=== PATIENT | male | born 1975 | race American Indian/Alaskan Native ===

== ENCOUNTER 2016-11-30 10:14 | Emergency (ER) | payer OTHER ==
[2016-11-30] MEDS ORDERED: BOOSTRIX IM ONE (10:49)
[2016-11-30] MEDS ORDERED: TORADOL IM ONE (10:50)
--- NOTE | 2016-11-30 11:40 | Emergency Department Report ---
- General Chief Complaint: Extremity Injury, Upper Stated Complaint: RT HAND LAC Time Seen by Provider: 11/30/16 10:48 Source: patient Mode of arrival: Ambulatory Limitations: No Limitations - History of Present Illness Initial Comments: 41 y/o male complain of right hand puncture wound .pt state he was chasing a suspect and attempt to jump over fence and puncture right palm of hand .no bleeding noted from wound.pt complain of pain around site and right thumb pain upon range of motion. -: This morning Extremity Location: Right: Hand (palm) Patient Tetanus UTD: No Context: accidental Associated Symptoms: pain (of right thumb) Treatments Prior to Arrival: bandage - Related Data Previous Rx's Medication Instructions Recorded Last Taken Type Amoxicillin/K Clav Tab [Augmentin 1 tab PO Q12HR #14 tab 11/30/16 Unknown Rx 875 mg] Ibuprofen [Motrin] 800 mg PO Q8HR PRN #30 tablet 11/30/16 Unknown Rx Allergies Allergy/AdvReac Type Severity Reaction Status Date / Time No Known Allergies Allergy Unverified 11/30/16 10:35 ED Review of Systems ROS: Stated complaint: RT HAND LAC Other details as noted in HPI Constitutional: denies: chills, fever Eyes: denies: eye pain, eye discharge, vision change ENT: denies: ear pain, throat pain Respiratory: denies: cough, shortness of breath, wheezing Cardiovascular: denies: chest pain, palpitations Endocrine: no symptoms reported Gastrointestinal: denies: abdominal pain, nausea, diarrhea Genitourinary: denies: urgency, dysuria Musculoskeletal: denies: back pain, joint swelling, arthralgia Skin: other (punture wound to right palm of hand). denies: rash, lesions Neurological: denies: headache, weakness, paresthesias Psychiatric: denies: anxiety, depression Hematological/Lymphatic: denies: easy bleeding, easy bruising ED Past Medical Hx - Past Medical History Previous Medical History?: No - Surgical History Past Surgical History?: No - Social History Smoking Status: Never Smoker Substance Use Type: Alcohol - Medications Home Medications: Home Medications Medication Instructions Recorded Confirmed Last Taken Type Amoxicillin/K Clav Tab [Augmentin 1 tab PO Q12HR #14 tab 11/30/16 Unknown Rx 875 mg] Ibuprofen [Motrin] 800 mg PO Q8HR PRN #30 tablet 11/30/16 Unknown Rx ED Physical Exam - General Limitations: No Limitations General appearance: alert, in no apparent distress - Head Head exam: Present: atraumatic, normocephalic - Eye Eye exam: Present: normal appearance Pupils: Present: normal accommodation - ENT ENT exam: Present: mucous membranes moist - Neck Neck exam: Present: normal inspection, tenderness - Respiratory Respiratory exam: Present: normal lung sounds bilaterally. Absent: respiratory distress, wheezes, rales - Cardiovascular Cardiovascular Exam: Present: regular rate, normal rhythm. Absent: systolic murmur, diastolic murmur, rubs, gallop - GI/Abdominal GI/Abdominal exam: Present: soft, normal bowel sounds - Rectal Rectal exam: Present: deferred - Extremities Exam Extremities exam: Present: normal inspection, full ROM, tenderness (right thumb) . Absent: joint swelling - Back Exam Back exam: Present: normal inspection, full ROM - Neurological Exam Neurological exam: Present: alert, oriented X3 - Psychiatric Psychiatric exam: Present: normal affect, normal mood - Skin Skin exam: Present: warm, dry, normal color, other (punture wound to right palm of hand ). Absent: rash ED Course Vital Signs 11/30/16 11/30/16 10:30 11:09 Temperature 98.9 F Pulse Rate 70 Respiratory 20 18 Rate Blood Pressure 142/87 O2 Sat by Pulse 96 Oximetry ED Medical Decision Making - Medical Decision Making Puncture wound to left palm hand X ray 2v hand : negative pt was given td shot in ed Critical care attestation.: If time is entered above; I have spent that time in minutes in the direct care of this critically ill patient, excluding procedure time. ED Disposition Clinical Impression: Puncture wound Disposition: DISCHARGED TO HOME OR SELFCARE Is pt being admited?: No Does the pt Need Aspirin: No Condition: Stable Instructions: Wound Infection (ED) Additional Instructions: keep wound clean and dry . Prescriptions: Amoxicillin/K Clav Tab [Augmentin 875 mg] 1 tab PO Q12HR #14 tab Ibuprofen [Motrin] 800 mg PO Q8HR PRN #30 tablet PRN Reason: Pain Referrals: TAWANDA ADDISON MD [Primary Care Provider] - 3-5 Days Forms: Work/School Release Form(ED) Time of Disposition: 12:08
[2016-11-30] MEDS ORDERED: TRIPLE ANTIBIOTIC TP ONE (11:44)
--- NOTE | 2016-11-30 11:58 | XRay Report ---
Right hand 3 views: History: Pain and puncture wound. Findings: No fracture, periosteal reaction or lytic lesion. No soft tissue calcification. Impression: No definite bony or articular abnormality.
[2016-11-30 12:17] VITALS: BP 130/80
== END 2016-11-30 12:15 | disposition home or self-care (01) ==
LOC: ED 10:14
DX: S61.432A Puncture wound without foreign body of left hand, initial encounter (principal); X58.XXXA Exposure to other specified factors, initial encounter; Y93.89 Activity, other specified; Y99.8 Other external cause status; Y92.89 Other specified places as the place of occurrence of the external cause
CPT/HCPCS: 73120; 90471; 90715; 96372; 99283; J1885; A6250

== ENCOUNTER 2021-02-13 08:00 | Outpatient (CLI) | payer BC ==
--- NOTE | 2021-02-13 08:45 | Cat Scan Report ---
CT ABDOMEN AND PELVIS WITHOUT CONTRAST INDICATION / CLINICAL INFORMATION: Flank pain. TECHNIQUE: Axial CT images were obtained through the abdomen and pelvis without IV contrast. All CT scans at this location are performed using CT dose reduction for ALARA by means of automated exposure control. COMPARISON: None available. FINDINGS: LOWER CHEST: No significant abnormality LIVER: No significant abnormality GALLBLADDER/BILIARY TREE: Cholecystectomy. PANCREAS: No significant abnormality SPLEEN: No significant abnormality ADRENALS: No significant abnormality KIDNEYS / URETER/BLADDER: 5 mm stone at the right UVJ or just inside the bladder. However, there is n o evidence of hydroureteronephrosis or inflammatory stranding of the ureters/renal collecting system. No additional renal or ureteral calculus is identified. Bladder is partially decompressed, though ot herwise unremarkable. REPRODUCTIVE ORGANS: No significant abnormality STOMACH / SMALL BOWEL: Stomach and small bowel are normal in caliber. No evidence of bowel inflammati on. COLON: The colon is unremarkable. The appendix is normal in caliber. LYMPH NODES: No significant adenopathy. VASCULATURE: No significant abnormality. OTHER: No free air, free fluid, or focal fluid collection is identified. SKELETAL SYSTEM: No acute osseous findings. IMPRESSION: 1. 5 mm stone at the right UVJ or just inside the bladder, without associated findings of obstruction of the right renal collecting system. 2. Otherwise, no acute process. Signer Name: Maurice Ram MD Signed: 02/13/2021 8:40 AM Workstation Name: [id number]
== END 2021-02-13 08:01 | disposition home or self-care (01) ==
LOC: CT 08:00
PROVIDERS: ATTEND Urology
DX: N20.0 Calculus of kidney (principal); Z90.49 Acquired absence of other specified parts of digestive tract
CPT/HCPCS: 74176